=== PATIENT | female | born 1965 | race Caucasian/White ===

== ENCOUNTER 2021-03-21 21:35 | Emergency (ER) | payer BC, OTHER ==
[2021-03-21 21:49] VITALS: BP 130/80; PULSE 60; TEMP 98.1; BMI 33.8
[2021-03-21] MEDS ORDERED: predniSONE 20 MG TABLET (UD) PO ONE (21:53)
[2021-03-21] MEDS ORDERED: predniSONE 20 MG TABLET (UD) ONE (21:57)
== END 2021-03-21 22:10 | disposition home or self-care (01) ==
LOC: FER 21:35
DX: L23.7 Allergic contact dermatitis due to plants, except food (principal)
CPT/HCPCS: 99283-25